=== PATIENT | female | born 1980 | race Caucasian/White ===

== ENCOUNTER 2018-01-31 13:00 | Emergency (ER) | payer OTHER ==
[2018-01-31] MEDS ORDERED: Ketorolac 30 MG/ML SDV IM ONE (13:38)
--- NOTE | 2018-01-31 13:40 | EDM.PDOC ---
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 over sudden onset of back pain no loss of bowel or bladder no fevers, also she is currently breast-feeding - Related Data Allergies Allergy/AdvReac Type Severity Reaction Status Date / Time No Known Allergies Allergy Verified 01/31/18 13:18 Home Meds: Home Meds NK [No Known Home Meds] 01/31/18 [History] Past Medical History PICTURE FRAMER History: Reports: Polycystic Ovaries, - Infectious Disease History Infectious Disease History: Reports: Chicken Pox - Past Surgical History Female Surgical History: Reports: Oophorectomy, Salpingo-Oophorectomy Social & Family History - Tobacco Use Smoking Status *Q: Never Smoker - Caffeine Use Caffeine Use: Reports: Coffee - Recreational Drug Use Recreational Drug Use: No ED ROS GENERAL - Review of Systems Review Of Systems: See Below Constitutional: Reports: No Symptoms GI/Abdominal: Reports: No Symptoms : Reports: No Symptoms Musculoskeletal: Reports: Back Pain Neurological: Reports: No Symptoms ED EXAM,LOWER BACK PAIN/INJURY - Physical Exam Exam: See Below Exam Limited By: No Limitations General Appearance: Alert, WD/WN, No Apparent Distress Back Exam: Normal Inspection, Decreased Range of Motion, Paraspinal Tenderness. No: CVA Tenderness (R), CVA Tenderness (L), Muscle Spasm, Vertebral Tenderness Extremities: Normal Inspection, Normal Range of Motion, Non-Tender DTR - Lower Extremities: 2+: Knee (R), Knee (L) Course - Vital Signs Last Recorded V/S: Last Vital Signs Temp 96.7 F 01/31/18 13:29 Pulse 82 01/31/18 13:29 Resp 16 01/31/18 13:29 BP 107/63 01/31/18 13:29 Pulse Ox 96 01/31/18 13:29 - Orders/Labs/Meds Meds: Medications Discontinued Medications Generic Name Dose Route Start Last Admin Trade Name Freq PRN Reason Stop Dose Admin Ketorolac Tromethamine 30 mg 01/31/18 13:38 01/31/18 13:52 Toradol IM 01/31/18 13:39 30 mg ONETIME ONE Administration Departure - Departure Time of Disposition: 14:26 Disposition: Home, Self-Care 01 Condition: Good Clinical Impression: Back pain Qualifiers: Back pain location: low back pain Chronicity: acute Back pain laterality: left Sciatica presence: without sciatica Qualified Code(s): M54.5 - Low back pain - Discharge Information Referrals: PCP,None [Primary Care Provider] - Forms: ED Department Discharge Additional Instructions: Use ibuprofen for baseline pain control, use hydrocodone for breakthrough pain, use Flexeril as needed for muscle relaxants, Please followup with your primary care provider in 3-5 days if not better, please call return to the emergency department with worsening of symptoms. - Assessment/Plan Plan: Assessment Acuity = acute Site and laterality = low back pain Etiology = secondary lifting injury Manifestations = none Location of injury = Home Lab values = none Plan She had minimal relief from the Toradol injection provided, and try Flexeril 10 mg by mouth 3 times a day when necessary total #15 and hydrocodone 5/325 one tab by mouth every 6 hours when necessary total #6, have her follow-up with primary care in 3-5 days if no improvement This note was dictated using [email or web address] recognition software please call with any questions on syntax or grammar.
== END 2018-01-31 14:41 | disposition home or self-care (01) ==
LOC: JP.ED 13:00
DX: M54.5 Low back pain (principal)
CPT/HCPCS: 96372; 99283; J1885